=== PATIENT | female | born 1980 | race Caucasian/White ===

== ENCOUNTER 2024-05-23 11:12 | Inpatient (IN) | payer BC ==
[2024-05-23 11:42] VITALS: BMI 32.4
[2024-05-23] MEDS ORDERED: NALOXONE (NARCAN) HCL 4 MG/0.1 ML SPRAY NS PRN (12:30)
[2024-05-23] MEDS ORDERED: MAG HYDROX/AL HYDROX/SIMETH 30 ML UNIT-DOSE CUP PO PRN (12:30)
[2024-05-23] MEDS ORDERED: ACETAMINOPHEN 325 MG TABLET (FP) PO PRN (12:30)
[2024-05-23] MEDS ORDERED: LOPERAMIDE HCL 2 MG CAPSULE PO PRN (12:30)
[2024-05-23] MEDS ORDERED: BENZONATATE 200 MG CAPSULE PO PRN (12:30)
[2024-05-23] MEDS ORDERED: ONDANSETRON *ODT* 4 MG TABLET SL PRN (12:30)
[2024-05-23] MEDS ORDERED: guaiFENesin 600 MG TABLET.ER (FP) PO PRN (12:30)
[2024-05-23] MEDS ORDERED: BISMUTH SUBSALICYLATE 262 MG/15 ML BTL PO PRN (12:30)
[2024-05-23] MEDS ORDERED: BENZOCAINE/MENTHOL (CHLORASEPTIC ) LOZENGE MM PRN (12:30)
[2024-05-23] MEDS ORDERED: POLYETHYLENE GLYCOL (HEALTHYLAX) 3350 17 GM PACKET PO PRN (12:30)
[2024-05-23] MEDS ORDERED: DICYCLOMINE HCL 10 MG CAPSULE PO PRN (12:30)
[2024-05-23] MEDS ORDERED: methaDONE HCL 10 MG TABLET (FOR DETOX USE ONLY) ONE (12:55)
[2024-05-23] MEDS: methaDONE HCL 10 MG TABLET PO ONE (13:01)
[2024-05-23] MEDS ORDERED: NICOTINE POLACRILEX 2 MG GUM ONE (13:03)
[2024-05-23] MEDS: NICOTINE POLACRILEX 2 MG GUM BUC PRN (13:05)
[2024-05-23] MEDS: cloNIDine HCL 0.1 MG TABLET PO SCH (13:53)
[2024-05-23] MEDS ORDERED: methaDONE HCL 10 MG TABLET PO PRN (14:30)
[2024-05-23] MEDS: chlordiazePOXIDE HCL 25 MG CAPSULE PO SCH (17:17)
[2024-05-23] MEDS: THIAMINE 100 MG TABLET PO SCH (22:29)
[2024-05-23] MEDS: MELATONIN 5 MG TABLETS PO SCH (22:31)
[2024-05-24] MEDS: methaDONE 40 MG, methaDONE 10 MG PO ONE (09:06)
[2024-05-24] MEDS: NICOTINE 14 MG/24 HOURS TOPICAL PATCH TD SCH (09:07)
[2024-05-24] MEDS: IBUPROFEN 600 MG TABLET (FP) PO PRN (09:07)
[2024-05-24] MEDS: METHOCARBAMOL 500 MG TABLET PO PRN (09:07)
[2024-05-24] MEDS: PRENATAL VITAMINS W/ FOLIC ACID TABLET (FP) PO SCH (09:08)
[2024-05-24 13:26] LABS: HEMATOCRIT 41.8 % (32.4-45.2); HEMOGLOBIN 14.3 GM/dL (10.7-15.3); MCH 31.2 pg (25.7-33.7); MCHC 34.1 g/dl (32.0-36.0); MEAN CELL VOLUME 91.4 fl (80-96); PLATELET COUNT 256 10^3/uL (134-434); RBC 4.58 M/mm3 (3.60-5.2); RDW 13.1 % (11.6-15.6); WHITE BLOOD COUNT 12.3 K/mm3 (4.0-10.0)
[2024-05-24] MEDS: chlordiazePOXIDE HCL 25 MG CAPSULE PO PRN (13:30)
[2024-05-24 13:37] LABS: ALBUMIN 3.9 g/dl (3.4-5.0); BLOOD UREA NITROGEN 5.1 mg/dL (7-18); CALCIUM 9.3 mg/dL (8.5-10.1)
[2024-05-24 13:41] LABS: CREATININE 0.5 mg/dL (0.55-1.3)
[2024-05-24 13:43] LABS: TOT PROT 7.7 g/dl (6.4-8.2)
[2024-05-24] MEDS ORDERED: NALOXONE (NYS OPIOID OVERDOSE PROGRAM) 4 MG/0.1 ML SPRAY NS PRN (14:28)
[2024-05-24 15:06] LABS: BILIRUBIN,TOTAL 0.6 mg/dL (0.2-1)
[2024-05-25] MEDS ORDERED: cloNIDine HCL 0.1 MG TABLET PO PRN
[2024-05-25] MEDS: NALOXONE (NYS OPIOID OVERDOSE PROGRAM) 4 MG/0.1 ML SPRAY NS ONE (00:16)
[2024-05-25] MEDS: chlordiazePOXIDE HCL 25 MG CAPSULE PO SCH (05:30)
[2024-05-25] MEDS: methaDONE 40 MG, methaDONE 20 MG PO ONE (10:48)
[2024-05-26] MEDS ORDERED: chlordiazePOXIDE HCL 10 MG CAPSULE PO PRN
[2024-05-26] MEDS: chlordiazePOXIDE HCL 10 MG CAPSULE PO SCH (05:13)
[2024-05-26] MEDS: methaDONE 40 MG, methaDONE 30 MG PO ONE (10:16)
[2024-05-26] MEDS: MAGNESIUM HYDROX 2400MG/30ML ORAL SUSPENSION 30 ML CUP PO PRN (10:18)
[2024-05-26 10:23] LABS: BASO % 0.7 % (0-2.0); EOS % 3.3 % (0-4.5); HEMATOCRIT 39.5 % (32.4-45.2); HEMOGLOBIN 12.9 GM/dL (10.7-15.3); LYMPH % 27.9 % (8-40); MCH 30.7 pg (25.7-33.7); MCHC 32.7 g/dl (32.0-36.0); MEAN CELL VOLUME 93.6 fl (80-96); MEAN PLT VOLUME 11.3 fl (7.5-11.1); MONO % 8.1 % (3.8-10.2); PLATELET COUNT 189 10^3/uL (134-434); RBC 4.22 M/mm3 (3.60-5.2); RDW 13.2 % (11.6-15.6); WHITE BLOOD COUNT 6.8 K/mm3 (4.0-10.0)
[2024-05-27] MEDS: chlordiazePOXIDE HCL 10 MG CAPSULE PO SCH (05:45)
[2024-05-27] MEDS: methaDONE HCL 40 MG DISPERSABLE TABLET PO ONE (09:46)
[2024-05-27] MEDS: IBUPROFEN 400 MG TABLET (FP) PO PRN (19:06)
[2024-05-27 22:05] VITALS: RESP 16
[2024-05-28] MEDS: chlordiazePOXIDE HCL 10 MG CAPSULE PO ONE (05:56)
[2024-05-28] MEDS: methaDONE 80 MG, methaDONE 10 MG PO ONE (09:17)
[2024-05-28 11:46] VITALS: BP 123/62; PULSE 70; TEMP 97.7
== END 2024-05-28 11:57 | disposition home or self-care (01) | DRG 773 ==
LOC: YASAS 11:12 → Y6N 12:49
PROVIDERS: ADMIT Allergy & Immunology; ATTEND Surgery
PROC: HZ2ZZZZ Detoxification Services for Substance Abuse Treatment (ICD-10-PCS; principal; 2024-05-23)
DX: F11.23 Opioid dependence with withdrawal (principal); F10.230 Alcohol dependence with withdrawal, uncomplicated; F17.213 Nicotine dependence, cigarettes, with withdrawal; F19.282 Other psychoactive substance dependence with psychoactive substance-induced sleep disorder; F19.280 Other psychoactive substance dependence with psychoactive substance-induced anxiety disorder; F31.9 Bipolar disorder, unspecified; D72.829 Elevated white blood cell count, unspecified; Z88.0 Allergy status to penicillin; Z88.2 Allergy status to sulfonamides
CPT/HCPCS: 36415; 80053; 80305; 80307; 81025; 85025; 85027; 86780; 93005; 93010

== ENCOUNTER 2024-08-01 15:30 | Inpatient (IN) | payer BC ==
[2024-08-01 17:00] VITALS: BMI 30.7
[2024-08-01] MEDS ORDERED: DICYCLOMINE HCL 10 MG CAPSULE PO PRN (17:36)
[2024-08-01] MEDS ORDERED: IBUPROFEN 400 MG TABLET (FP) PO PRN (17:36)
[2024-08-01] MEDS ORDERED: BENZOCAINE/MENTHOL (CHLORASEPTIC ) LOZENGE MM PRN (17:36)
[2024-08-01] MEDS ORDERED: guaiFENesin 600 MG TABLET.ER (FP) PO PRN (17:36)
[2024-08-01] MEDS ORDERED: MAGNESIUM HYDROX 2400MG/30ML ORAL SUSPENSION 30 ML CUP PO PRN (17:36)
[2024-08-01] MEDS ORDERED: BENZONATATE 200 MG CAPSULE PO PRN (17:36)
[2024-08-01] MEDS ORDERED: BISMUTH SUBSALICYLATE 524 MG/30 ML PO PRN (17:36)
[2024-08-01] MEDS ORDERED: MAG HYDROX/AL HYDROX/SIMETH 30 ML UNIT-DOSE CUP PO PRN (17:36)
[2024-08-01] MEDS ORDERED: POLYETHYLENE GLYCOL (HEALTHYLAX) 3350 17 GM PACKET PO PRN (17:36)
[2024-08-01] MEDS ORDERED: NALOXONE (NARCAN) HCL 4 MG/0.1 ML SPRAY NS PRN (17:36)
[2024-08-01] MEDS ORDERED: chlordiazePOXIDE HCL 25 MG CAPSULE ONE (17:49)
[2024-08-01] MEDS: chlordiazePOXIDE HCL 25 MG CAPSULE PO PRN (18:07)
[2024-08-01] MEDS: chlordiazePOXIDE HCL 25 MG CAPSULE PO SCH (22:12)
[2024-08-01] MEDS: METHOCARBAMOL 500 MG TABLET PO PRN (22:14)
[2024-08-01] MEDS: THIAMINE 100 MG TABLET PO SCH (22:14)
[2024-08-01] MEDS: IBUPROFEN 600 MG TABLET (FP) PO PRN (22:14)
[2024-08-01] MEDS: MELATONIN 5 MG TABLETS PO SCH (22:15)
[2024-08-02] MEDS: PRENATAL VITAMINS W/ FOLIC ACID TABLET (FP) PO SCH (09:53)
[2024-08-02] MEDS: methaDONE HCL 10 MG TABLET PO ONE (10:48)
[2024-08-02] MEDS: NICOTINE 14 MG/24 HOURS TOPICAL PATCH TD SCH (10:48)
[2024-08-02] MEDS: PNEUMOC 20-VAL CONJ-DIP CRM/PF 0.5 ML SYRINGE IM ONE (11:10)
[2024-08-02] MEDS ORDERED: methaDONE HCL 10 MG TABLET PO PRN (12:22)
[2024-08-02 12:53] LABS: CHLORIDE 104 mmol/L (98-107); POTASSIUM 3.3 mmol/L (3.5-5.1); SODIUM 139 mmol/L (136-145)
[2024-08-02 12:58] LABS: GLUCOSE,RANDOM 118 mg/dL (74-106)
[2024-08-02 13:02] LABS: HEMATOCRIT 44.4 % (32.4-45.2); HEMOGLOBIN 14.7 GM/dL (10.7-15.3); MCH 30.2 pg (25.7-33.7); MEAN CELL VOLUME 91.4 fl (80-96); MEAN PLT VOLUME 10.6 fl (7.5-11.1); PLATELET COUNT 265 10^3/uL (134-434); RBC 4.86 M/mm3 (3.60-5.2); RDW 14.2 % (11.6-15.6); WHITE BLOOD COUNT 10.3 K/mm3 (4.0-10.0)
[2024-08-02 13:03] LABS: CALCIUM 9.8 mg/dL (8.5-10.1); TOT PROT 7.2 g/dl (6.4-8.2)
[2024-08-02 13:04] LABS: ALBUMIN 3.7 g/dl (3.4-5.0); ANION GAP 9 mmol/L (4-13); BLOOD UREA NITROGEN 11.7 mg/dL (7-18); CO2 27 mmol/L (21-32)
[2024-08-02 13:07] LABS: CREATININE 0.6 mg/dL (0.55-1.3); SGOT/AST 44 U/L (15-37); SGPT/ALT 58 U/L (13-61)
[2024-08-02 13:09] LABS: BILIRUBIN,TOTAL 0.6 mg/dL (0.2-1)
[2024-08-02 13:10] LABS: ALK PHOS 77 U/L (45-117)
[2024-08-02] MEDS: ONDANSETRON *ODT* 4 MG TABLET SL PRN (13:10)
[2024-08-02] MEDS: NICOTINE POLACRILEX 2 MG GUM BUC PRN (13:10)
[2024-08-02] MEDS: cloNIDine HCL 0.1 MG TABLET PO SCH (14:27)
[2024-08-02] MEDS: POTASSIUM CHLORIDE ORAL LIQUID 20 MEQ/15 ML PO ONE (14:31)
[2024-08-02] MEDS: MELATONIN 5 MG TABLETS PO SCH (22:27)
[2024-08-03] MEDS: chlordiazePOXIDE HCL 25 MG CAPSULE PO SCH (05:56)
[2024-08-03] MEDS ORDERED: methaDONE 40 MG, methaDONE 10 MG PO ONE (10:00)
[2024-08-03] MEDS: methaDONE HCL 40 MG DISPERSABLE TABLET PO ONE (10:17)
[2024-08-03] MEDS: DOXYCYCLINE HYCLATE 100 MG CAPSULE PO ONE (15:26)
[2024-08-03] MEDS: DOXYCYCLINE HYCLATE 100 MG TABLET PO ONE ×2 (15:26→22:09)
[2024-08-03] MEDS: MUPIROCIN CA 2% TOPICAL CREAM 15 GM TUBE TP SCH (16:00)
[2024-08-03] MEDS ORDERED: DOXYCYCLINE HYCLATE 100 MG CAPSULE PO SCH (18:00)
[2024-08-03] MEDS ORDERED: DOXYCYCLINE HYCLATE 100 MG CAPSULE PO ONE (22:00)
[2024-08-03] MEDS: LOPERAMIDE HCL 2 MG CAPSULE PO PRN (22:08)
[2024-08-04] MEDS ORDERED: cloNIDine HCL 0.1 MG TABLET PO PRN
[2024-08-04] MEDS ORDERED: chlordiazePOXIDE HCL 10 MG CAPSULE PO PRN
[2024-08-04] MEDS: chlordiazePOXIDE HCL 10 MG CAPSULE PO SCH (05:44)
[2024-08-04 08:31] LABS: POTASSIUM 3.9 mmol/L (3.5-5.1)
[2024-08-04 08:33] LABS: BLOOD UREA NITROGEN 14.3 mg/dL (7-18); CALCIUM 9.2 mg/dL (8.5-10.1)
[2024-08-04 08:37] LABS: CREATININE 0.6 mg/dL (0.55-1.3)
[2024-08-04] MEDS: DOXYCYCLINE HYCLATE 100 MG TABLET PO SCH (09:46)
[2024-08-04] MEDS: methaDONE 40 MG, methaDONE 10 MG PO ONE (09:46)
[2024-08-04] MEDS ORDERED: methaDONE HCL 40 MG DISPERSABLE TABLET PO ONE (10:00)
[2024-08-04] MEDS ORDERED: methaDONE 40 MG, methaDONE 20 MG PO ONE (10:00)
[2024-08-04] MEDS ORDERED: DOXYCYCLINE HYCLATE 100 MG CAPSULE PO SCH (10:00)
[2024-08-04] MEDS: METHOCARBAMOL 500 MG TABLET PO PRN (17:03)
[2024-08-04] MEDS: ACETAMINOPHEN 325 MG TABLET (FP) PO PRN (19:45)
[2024-08-04] MEDS: hydrOXYzine PAMOATE 25 MG CAPSULE (FP) PO PRN (22:09)
[2024-08-05] MEDS: chlordiazePOXIDE HCL 10 MG CAPSULE PO SCH (05:31)
[2024-08-05] MEDS: methaDONE 40 MG, methaDONE 20 MG PO ONE (09:43)
[2024-08-05] MEDS ORDERED: methaDONE HCL 40 MG DISPERSABLE TABLET PO ONE (10:00)
[2024-08-05] MEDS ORDERED: methaDONE 40 MG, methaDONE 30 MG PO ONE (10:00)
[2024-08-05] MEDS: LIDOCAINE 5% TOPICAL PATCH TP SCH (14:02)
[2024-08-05] MEDS: LIDOCAINE PATCH REMOVAL MC SCH (22:18)
[2024-08-06] MEDS: chlordiazePOXIDE HCL 10 MG CAPSULE PO ONE (05:18)
[2024-08-06] MEDS ORDERED: methaDONE HCL 40 MG DISPERSABLE TABLET PO ONE ×2 (10:00)
[2024-08-06] MEDS: METHOCARBAMOL 500 MG TABLET PO ONE (11:02)
[2024-08-06] MEDS: MIRTAZAPINE 15 MG TABLET (FP) PO SCH (21:34)
[2024-08-07] MEDS: methaDONE 40 MG, methaDONE 30 MG PO ONE (09:12)
[2024-08-07] MEDS: NALOXONE (NYS OPIOID OVERDOSE PROGRAM) 4 MG/0.1 ML SPRAY NS SCH (09:13)
[2024-08-07 09:24] VITALS: BP 117/60; PULSE 63; RESP 18; TEMP 97.8
[2024-08-07] MEDS ORDERED: methaDONE HCL 40 MG DISPERSABLE TABLET PO ONE (10:00)
[2024-08-07] MEDS ORDERED: methaDONE 80 MG, methaDONE 10 MG PO ONE (10:00)
== END 2024-08-07 10:49 | disposition home or self-care (01) | DRG 773 ==
LOC: YASAS 15:30 → Y3N 17:48
PROVIDERS: ADMIT Allergy & Immunology; ATTEND Surgery
PROC: HZ2ZZZZ Detoxification Services for Substance Abuse Treatment (ICD-10-PCS; principal; 2024-08-01)
DX: F11.23 Opioid dependence with withdrawal (principal); F10.230 Alcohol dependence with withdrawal, uncomplicated; F17.210 Nicotine dependence, cigarettes, uncomplicated; F31.9 Bipolar disorder, unspecified; F90.9 Attention-deficit hyperactivity disorder, unspecified type; E87.5 Hyperkalemia; B18.2 Chronic viral hepatitis C; L98.8 Other specified disorders of the skin and subcutaneous tissue; M54.50 Low back pain, unspecified; G89.29 Other chronic pain; Z88.0 Allergy status to penicillin; Z88.2 Allergy status to sulfonamides
CPT/HCPCS: 36415; 80048; 80053; 80307; 85027; 86780; 93005; 93010; Q0162